=== PATIENT | female | born 1940 | race Caucasian/White ===

== ENCOUNTER → 2019-12-20 12:44 | Outpatient (CLI) | payer MEDICARE, SELFPAY ==
--- NOTE | ~2019-12-20 | MM_ITS ---
EXAMINATION: MM screening regi BI w felicia HISTORY: Screening mammogram TECHNIQUE: Craniocaudal and mediolateral oblique 3-D tomosynthesis images were obtained and synthetic 2-D images were generated. CAD analysis was submitted and interpreted. COMPARISON: 10/13/2018, 09/25/2017, 09/23/2016 bilateral digital screening mammogram examinations BREAST PARENCHYMAL COMPOSITION: There are scattered areas of fibroglandular density. FINDINGS: Biopsy marker on the right; history of prior benign right breast biopsy. There is no eviden ce of suspicious mass, calcification, or architectural distortion to suggest malignancy in either vonda ast. There has been no suspicious interval change. IMPRESSION: 1. No mammographic evidence of malignancy. 2. Recommend routine screening mammography in one year. BIRADS Category 1: Negative RECOMMENDATION: Routine mammographic screening Reviewed, dictated and finalized at location A.
== END ==
PROVIDERS: PCP Internal Medicine; Visit Provider Obstetrics & Gynecology Gynecology
DX: Z12.31 Encounter for screening mammogram for malignant neoplasm of breast (principal)
CPT/HCPCS: 77063; 77067

== ENCOUNTER → 2021-01-02 12:16 | Outpatient (CLI) | payer MEDICARE, SELFPAY ==
--- NOTE | ~2021-01-02 | MM_ITS ---
EXAMINATION: MM screening regi BI w felicia HISTORY: Screening TECHNIQUE: Craniocaudal and mediolateral oblique 3-D tomosynthesis images were obtained and synthetic 2-D images were generated. CAD analysis was submitted and interpreted. COMPARISON: Comparison to multiple prior studies sequentially, with oldest reviewed study dated 09/23. BREAST PARENCHYMAL COMPOSITION: There are scattered areas of fibroglandular density. FINDINGS: There is no evidence of suspicious mass, calcification, or architectural distortion to sugg est malignancy in either breast. There has been no suspicious interval change. IMPRESSION: 1. No mammographic evidence of malignancy. 2. Recommend routine screening mammography in one year. BI-RADS Category 1: Negative Reviewed, dictated and finalized at location A.
== END ==
PROVIDERS: PCP Internal Medicine; Visit Provider Obstetrics & Gynecology Gynecology
DX: Z12.31 Encounter for screening mammogram for malignant neoplasm of breast (principal)
CPT/HCPCS: 77063; 77067

== ENCOUNTER → 2022-03-11 13:05 | Outpatient (CLI) | payer MEDICARE, SELFPAY ==
--- NOTE | ~2022-03-11 | MM_ITS ---
EXAMINATION: MM screening regi BI w felicia HISTORY: Screening mammogram TECHNIQUE: Craniocaudal and mediolateral oblique 3-D tomosynthesis images were obtained and synthetic 2-D images were generated. CAD analysis was submitted and interpreted. COMPARISON: 01/02/2021, 12/20/2019, 10/13/2018 bilateral screening mammogram examinations BREAST PARENCHYMAL COMPOSITION: There are scattered areas of fibroglandular density. FINDINGS: There is a biopsy marker on the right. Seminal history of prior benign right breast biopsy. Occasional benign calcifications of the breasts. There is no evidence of suspicious mass, calcificati on, or architectural distortion to suggest malignancy in either breast. There has been no suspicious interval change. IMPRESSION: 1. No mammographic evidence of malignancy. 2. Recommend routine screening mammography in one year. BI-RADS Category 2: Benign finding(s). Reviewed, dictated and finalized at location A. CTOR LOAN
== END ==
PROVIDERS: PCP Internal Medicine; Visit Provider Obstetrics & Gynecology Gynecology
DX: Z12.31 Encounter for screening mammogram for malignant neoplasm of breast (principal)
CPT/HCPCS: 77063; 77067

== ENCOUNTER → 2022-03-26 09:45 | Outpatient (CLI) | payer MEDICARE, SELFPAY ==
--- NOTE | ~2022-03-26 | DEXA_ITS ---
Bone Density Report Name: MAKAYLA MONTES Age: 81 Sex: Female Ethnicity: White Date of : 1940 Indication: postmenopausal; screening for osteoporosis; height loss; Referring Provider: TONY LYNCH Study: Bone densitometry was performed. Exam Date: March 26, 2022 Accession number: [id number] Bone Density: Region BMD T-score Z-score Classification AP Spine (L1, L2) 1.028 0.4 3.1 Normal Femoral Neck (Left) 0.805 -0.4 2.0 Normal Total Hip (Left) 0.985 0.4 2.6 Normal Femoral Neck (Right) 0.884 0.3 2.8 Normal Total Hip (Right) 1.133 1.6 3.8 Normal Total Hip Mean 1.059 1.0 3.2 Normal World Health Organization criteria for BMD impression classify patients as: Normal (T-score at or above -1.0), Osteopenia (T-score between -1.0 and -2.5), or Osteoporosis (T-score at or below -2.5). 10-year Fracture Risk: FRAX not reported because: All T-scores for Spine Total, Hip Total, Femoral Neck at or above -1.0 Previous Exams: Region Exam Age BMD T-score BMD Change BMD Change Date g/cm2 vs Baseline vs Previous AP Spine(L1, L2) 03/26/2022 81 1.028 0.4 0.132* 0.000 01/15/2019 78 1.028 0.4 0.133* 0.062* 12/30/2014 74 0.967 -0.1 0.071* -0.001 12/18/2011 71 0.968 -0.1 0.073* 0.046* 12/15/2009 69 0.922 -0.5 0.026* 0.026* 07/11/2006 66 0.895 -0.8 Total Hip(Left) 03/26/2022 81 0.985 0.4 -0.014 -0.007 01/15/2019 78 0.992 0.4 -0.007 -0.075* 12/30/2014 74 1.067 1.0 0.068* 0.059* 12/18/2011 71 1.008 0.5 0.009 0.013 12/15/2009 69 0.994 0.4 -0.005 -0.005 07/11/2006 66 0.999 0.5 Total Hip(Right) 03/26/2022 81 1.133 1.6 0.033* -0.028* 01/15/2019 78 1.161 1.8 0.061* 0.028* 12/30/2014 74 1.133 1.6 0.033* 0.113* 12/18/2011 71 1.020 0.6 -0.080* -0.004 12/15/2009 69 1.024 0.7 -0.076* -0.076* 07/11/2006 66 1.100 1.3 *Denotes significance at 95% confidence level, LSC for AP Spine = 0.022 g/cm2, LSC for Total Hip = 0.027 g/cm2 Clinical Information Provided by Patient: Has used the following medications: Vitamin D, Calcium Patient maximum height was 65.75 Menopause Age: 49 No regular weight bearing exercise Onset of menses at age 13 Number of children 2 -
== END ==
PROVIDERS: PCP Internal Medicine; Visit Provider Obstetrics & Gynecology Gynecology
DX: Z78.0 Asymptomatic menopausal state (principal)
CPT/HCPCS: 77080

== ENCOUNTER → 2023-03-19 13:07 | Outpatient (CLI) | payer MEDICARE, SELFPAY ==
--- NOTE | ~2023-03-19 | MM_ITS ---
EXAMINATION: MM screening regi BI w felicia HISTORY: Screening mammogram, family history of breast cancer in her sister. TECHNIQUE: Craniocaudal and mediolateral oblique 3-D tomosynthesis images were obtained and synthetic 2-D images were generated. CAD analysis was submitted and interpreted. COMPARISON: 03/11/2022, 01/02/2021, 12/20/2019 BREAST PARENCHYMAL COMPOSITION: There are scattered areas of fibroglandular density. FINDINGS: No suspicious mass, calcification, or architectural distortion are identified in either vonda ast to suggest malignancy. There has been no suspicious interval change. IMPRESSION: 1. No mammographic evidence of malignancy. 2. Recommend routine screening mammography while the patient remains in good health. BI-RADS Category 1: Negative Reviewed, dictated and finalized at location A. ON SEWER HAND IMPRESSION: 1. No mammographic evidence of malignancy. 2. Recommend routine screening mammography while the patient remains in good he alth. BI-RADS Category 1: Negative
== END ==
PROVIDERS: PCP Internal Medicine; Visit Provider Obstetrics & Gynecology Gynecology
DX: Z12.31 Encounter for screening mammogram for malignant neoplasm of breast (principal)
CPT/HCPCS: 77063; 77067

== ENCOUNTER 2024-10-26 11:13 | Outpatient (CLI) | payer MEDICARE, SELFPAY ==
--- NOTE | ~2024-10-26 | MM_ITS ---
EXAMINATION: MM screening [facility] BI w felicia HISTORY: Screening mammogram TECHNIQUE: Craniocaudal and mediolateral oblique 3-D tomosynthesis images were obtained and synthetic 2-D images were generated. CAD analysis was submitted and interpreted. COMPARISON: 03/19/2023, 03/11/2022, 01/02/2021 BREAST PARENCHYMAL COMPOSITION:Not Dense. There are scattered areas of fibroglandular density. FINDINGS: There are much more numerous calcifications at the upper, outer, posterior right breast, bu t these have round and lucent centered morphology, compatible with benign calcifications. No suspicio us mass, calcification, or architectural distortion are identified in either breast to suggest malign ajith. There has been no suspicious interval change. IMPRESSION: No mammographic evidence of malignancy. Recommend routine screening mammography in one year. BI-RADS Category 2: Benign finding(s). Reviewed, dictated and finalized at [facility].
== END 2024-10-26 11:14 | disposition home or self-care (01) ==
LOC: MICIMG 11:15
PROVIDERS: PCP Internal Medicine; Visit Provider Obstetrics & Gynecology Gynecology
DX: Z12.31 Encounter for screening mammogram for malignant neoplasm of breast (principal)
CPT/HCPCS: 77063; 77067

== ENCOUNTER 2024-11-16 15:03 | Emergency (ER) | payer OTHER, MEDICARE, SELFPAY ==
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
[2024-11-16 15:03] VITALS: BP 162/74; PULSE 87; RESP 17; TEMP 36.9; O2SAT 96
--- NOTE | 2024-11-16 15:06 | ECG_ITS ---
Test Date: 2024-11-16 15:10:44 Measurements Intervals Sims Rate: 89 P: 55 FL: 191 QRS: -3 QRSD: 81 T: 37 QT: 336 QTc: 409 Interpretive Statements SINUS RHYTHM WITH OCCASIONAL SUPRAVENTRICULAR PREMATURE COMPLEXES No previous ECG available for comparison Electronically Signed On 11-17-2024 12:33:21 CDT by Aayush Martins M.D.
[2024-11-16 16:54] LABS: Estimated CRCL calculation 47 ml/min; Estimated Glomerular Filt Rate > 60
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
[2024-11-16] MEDS: ACETAMINOPHEN 500 MG TABLET 1000 MG PO (17:31)
[2024-11-16] MEDS: traMADol HCL (*CRX) 25 MG TABLET PO (17:33)
[2024-11-16 17:36] VITALS: BP 138/66; PULSE 88; RESP 17; O2SAT 95
--- OUTSIDE RECORDS SUMMARY | 2024-11-16 18:01 | XMS_ITS | Data Portability ---
Author Organization [facility], Main Office Address [address] [place] [address] Care Team Providers Care Neuropsychology Director Name Role Phone GANESH MONTALVO Primary Care Provider GANESH MONTALVO Referring Provider Assessment Encounter Date Assessment Date Assessment LastModified by Organization Details LastModified Time 02/20/2023 02/20/2023 Impression: Patient has evidence of trochanteric bursitis of the left hip. She does not have definite abduction weakness. She would like to try another cortisone shot I think that is a reasonable option for her. Risks of side effects including risk of infection discussed. After ChloraPrep prep, 20 mg of Kenalog and 4 cc of 0.5% ropivacaine were injected the trochanteric bursa left hip. She noted excellent relief of the tenderness over the greater trochanter after the injection. 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 I will be happy to see her back as needed. [email or web address] Not available 02/20/2023 15:57:20 Plan of Treatment Reminders Order Date Submit Date Provider Last Modified By Organization Details Last Modified Time Details Appointments Medicare Wellness 15 2024 11:15A M Ganesh Montalvo MD Not available Not available Not available Lab vitamin D, 25-hydrox y, total, serum 2024 025 [email or web address] [facility] (Lab), [address] [place], [address], 06/15/2024 09:43:58 CMP, serum or plasma 2024 025 [facility] [address] [place], [address], 06/09/2024 19:31:26 lipid panel, serum 2024 025 [facility] (Lab), [address] [place], [address], 06/09/2024 19:31:31 TSH, serum or plasma 2024 025 [facility] (Lab), [address] [place], [address], 06/09/2024 19:57:59 TSH, serum or plasma 2023 024 [facility] (Lab), [address] [place], [address], 01/12/2024 22:45:10 vitamin D, 25-hydrox y, total, serum 2023 024 [facility] (Lab), [address] [place], [address], 05/14/2023 00:32:01 CMP, serum or plasma 2023 024 [facility] (Lab), [address] [place], [address], 05/13/2023 20:36:58 lipid panel, serum 2023 024 [facility] (Lab), [address] [place], [address], 05/13/2023 20:37:00 CBC w/ auto diff 2023 024 [facility] (Lab), [address] [place], [address], 05/13/2023 19:34:11 TSH, serum or plasma 2023 024 [facility] (Lab), [address] [place], [address], 05/13/2023 20:49:17 T4, free, serum 2023 024 [facility] (Lab), [address] [place], [address], 05/13/2023 20:42:43 Referral None recorded. Procedures injection /aspirati on joint/bur sa (PROC) - in office procedure , administe red by provider 2022 023 [email or web address] In-Office Order, Internal Use Only DO Not Attach Compendium DO Not Attach Compendium, Do Not Delete/merge, [id number] 02/20/2023 15:18:46 Surgeries None recorded. Imaging None recorded. Medication Orders oxybutyni n chloride ER 10 mg tablet,ex tended release 24 hr 2023 024 [address] [id number] [address], [place], [id number], 06/08/2024 16:08:28 celecoxib 200 mg capsule 2023 [address] [address], [place], [id number], 05/09/2023 13:32:20 Kenalog 10 mg/mL suspensio n for injection 2022 023 [email or web address] [facility] #[id number], [address], [place], [id number], 05/08/2023 14:35:35 ropivacai ne (PF) 5 mg/mL (0.5 %) injection solution 2022 023 [email or web address] [facility] #[id number], [address], [place], [id number], 09/08/2023 14:17:40 Patient TargetsNo targets recorded. Patient Instructions Encounter Date Encounter Id Patient Instructions Last Modified By Organization Details Last Modified Time 01/12/2024 [id number] dementia rating scale-2* Not available 01/12/2024 16:47:52 alcohol misuse* Not available 01/12/2024 16:47:52 Timed Up and Go test (TUG)* Not available 01/12/2024 16:47:52 depression screening* Not available 01/12/2024 16:47:51 multi-dimensiona l health assessment questionnaire* Not available 01/12/2024 16:47:52 advance directiv es: care instructions Not available 01/12/2024 16:47:52 advance care planning: care instructions Not available 01/12/2024 16:47:52 [place] Advance Directives Not available 01/12/2024 16:47:52 Personalized a lth Plan and Screening Recommendations Advance Directives - Do you have one? No You have indicated that you are capable of preparing your advance care directive Advance Directives - Do we have your advance directive on file in your health record? 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, Continue current treatment plan Heart Attack: Intermediate Risk Active diagnosis, Continue current treatment plan Clogging of the Arteries: Low risk Active diagnosis, Continue current treatment plan Diabetes: Low Risk I have no recommendations Secondary Prevention/Interven tion (detects treatable diseases before they may cause symptoms, disability, or ) Breast Cancer Screening with mammogram: No screening necessary Cervical/Uterine/Ov pura Cancer Screening: No screening necessary Osteoporosis Screening: No screening necessary Date Screening Last Performed: Colon Cancer Screening: No screening necessary Date Screening Last Performed: Eye Disease Screening: No Eye exam necessary Dementia Risk: Low I have no recommendations Depression Screening: Negative I have no recommendations [email or web address] Not available 01/12/2024 15:50:53 Reason for Referral None Reported. Results Created Date Observation Date Name Description Value Unit Range Abnormal Flag Note LastModifiedBy Organization Detail LastModifiedTime 05/12/19 24 05/13/2023 COMPR EHENS MARY METAB OLIC PANEL sodium 139 mmol/ L 137-14 5 Not Available [facility] (Lab) [address] [place], [address], 05/13/2023 20:36:58 05/12/19 24 05/13/2023 COMPR EHENS MARY METAB OLIC PANEL potassium 4.7 mmol/ L 3.5-5. 1 Not Available [facility] (Lab) [address] [place], [address], 05/13/2023 20:36:58 05/12/19 24 05/13/2023 COMPR EHENS MARY METAB OLIC PANEL chloride 103 mmol/ L 98-107 Not Available [facility] (Lab) [address] [place], [address], 05/13/2023 20:36:58 05/12/19 24 05/13/2023 COMPR EHENS MARY METAB OLIC PANEL carbon dioxide 30 mmol/ L 22-30 Not Available [facility] (Lab) [address] [place], [address], 05/13/2023 20:36:58 05/12/19 24 05/13/2023 COMPR EHENS MARY METAB OLIC PANEL anion gap 10.7 mmol/ L 14-22 low Not Available [facility] (Lab) [address] [place], [address], 05/13/2023 20:36:58 05/12/19 24 05/13/2023 COMPR EHENS MARY METAB OLIC PANEL glucose 87 mg/dL 70-99 Not Available [facility] (Lab) [address] [place], [address], 05/13/2023 20:36:58 05/12/19 24 05/13/2023 COMPR EHENS MARY METAB OLIC PANEL BUN 23 mg/dL 8-19 high Not Available [facility] (Lab) [address] [place], [address], 05/13/2023 20:36:58 05/12/19 24 05/13/2023 COMPR EHENS MARY METAB OLIC PANEL creatinine 0.67 mg/dL 0.66-1 .25 Not Available [facility] (Lab) [address] [place], [address], 05/13/2023 20:36:58 05/12/19 24 05/13/2023 COMPR EHENS MARY METAB OLIC PANEL GFR >60 Refer ence Range : [place] ge GFR Healt hy Adult : >60 mL/mi n/1.7 3 m2 Chron ic Kidne y Disea se: 15-60 mL/mi n/1.7 3 m2 Kidne y Failu re: <15/m L/min /1.73 m2 www.n iddk. nih.g ov The MDRD study equat ion has not been valid ated in child mendoza <18 years of age; pregn ant women ; the elder ly >85 years of age; or in some racia l or ethni c subgr oups, such as [facility] nics. Outsi de the valid ated enrrique eters , estim ated GFR is less accur ate, requi ring clini john judgm ent on a case- by-ca se basis . Clini john inter preta tion for other races and ages must be made by the clini annmarie. The MDRD study equat ion has not been valid ated for the evalu ation of serum creat inine relat ed to nutri marlon l statu s or medic ation usage . For perso ns <18 years of age, a pedia tric GFR calcu lator is avail able on the [facility] websi te: https ://rachel rios.kid tee.o rg/pr ofess ional s/kdo qi/gf r_cal culat or Not Available [facility] (Lab) [address] [place], [address], 05/13/2023 20:36:58 05/12/19 24 05/13/2023 COMPR EHENS MARY METAB OLIC PANEL alkaline phosphatase 67 U/L 38-126 Not Available [facility] (Lab) [address] [place], [address], 05/13/2023 20:36:58 05/12/19 24 05/13/2023 COMPR EHENS MARY METAB OLIC PANEL alanine aminotransfe rase 18 U/L 0-35 Not Available [facility] (Lab) [address] [place], [address], 05/13/2023 20:36:58 05/12/19 24 05/13/2023 COMPR EHENS MARY METAB OLIC PANEL aspartate aminotransfe rase 35 U/L 15-37 Not Available [facility] (Lab) [address] [place], [address], 05/13/2023 20:36:58 05/12/19 24 05/13/2023 COMPR EHENS MARY METAB OLIC PANEL bilirubin, total 0.50 mg/dL 0.20-1 .30 Not Available [facility] (Lab) [address] [place], [address], 05/13/2023 20:36:58 05/12/19 24 05/13/2023 COMPR EHENS MARY METAB OLIC PANEL calcium 10.1 mg/dL 8.4-10 .2 Not Available [facility] (Lab) [address] [place], [address], 05/13/2023 20:36:58 05/12/19 24 05/13/2023 COMPR EHENS MARY METAB OLIC PANEL total protein 6.8 g/dL 6.3-8. 2 Not Available [facility] (Lab) [address] [place], [address], 05/13/2023 20:36:58 05/12/19 24 05/13/2023 COMPR EHENS MARY METAB OLIC PANEL albumin 4.1 g/dL 3.0-4. 4 Not Available [facility] (Lab) [address] [place], [address], 05/13/2023 20:36:58 05/12/19 24 05/13/2023 COMPR EHENS MARY METAB OLIC PANEL globulin 2.7 g/dL 2.6-4. 2 Not Available [facility] (Lab) [address] [place], [address], 05/13/2023 20:36:58 05/12/19 24 05/13/2023 COMPR EHENS MARY METAB OLIC PANEL A/G ratio 1.5 ratio 1.0-2. 0 Not Available [facility] (Lab) [address] [place], [address], 05/13/2023 20:36:58 05/12/1905/13/2023 LIPID PANEL cholesterol 187 mg/dL 140-19 9 NIH DAYO NSUS RECOM MENDA TION FOR RAYNA STERO L: ADULT CHILD LOW RISK: <200 <170 BORDE RLINE : <200- 239 ----- HIGH RISK: >240 >200 Not Available [facility] (Lab) [address] [place], [address], 05/13/2023 20:37:00 05/12/1905/13/2023 LIPID PANEL triglyceride s 87 mg/dL 0-150 NIH DAYO NSUS REPOR T RECOM MENDA TION FOR TRIGL YCERI ANETTE: ADULT CHILD LOW RISK: <150 ----- BODER LINE: 150-1 99 ----- HIGH RISK: >200 ----- Not Available [facility] (Lab) [address] [place], [address], 05/13/2023 20:37:00 05/12/19 24 05/13/2023 LIPID PANEL HDL cholesterol 63 mg/dL 40- Not Available [facility] (Lab) [address] [place], [address], 05/13/2023 20:37:00 05/12/19 24 05/13/2023 LIPID PANEL LDL cholesterol, calculated 107 mg/dL 0-130 NIH DAYO NSUS REPOR T RECOM MENDA TIONS FOR LDL: ADULT CHILD LOW RISK <130 <110 (OPTI MAL LDL) <100 ----- BORDE RLINE : 130-1 59 ----- HIGH RISK: >160 >130 A TRIGL YCERI DE RESUL T >400 INVAL IDATE S THE CALCU LATIO N FOR LDL FRACT IONAT ION - THE LDL RESUL T WILL NOT BE REPOR PETER. Not Available [facility] (Lab) [address] [place], [address], 05/13/2023 20:37:00 05/12/19 24 05/13/2023 VITAM IN D 25-HY DROXY [id number] 50.1 NG/mL 30-100 Vitam in D Statu s: Defic ient: <20 ng/mL Insuf ficie nt: 20-29 ng/mL Suffi cient : 30-10 0 ng/mL Not Available [facility] (Lab) [address] [place], [address], 05/13/2023 20:39:25 05/12/19 24 05/13/2023 T4 FREE free T4 1.52 NG/dL 0.78-2 .19 Not Available [facility] (Lab) [address] [place], [address], 05/13/2023 20:42:43 05/12/19 24 05/13/2023 TSH thyroid-stim ulating hormone 0.338 uIU/m L 0.465- 4.680 low Not Available [facility] (Lab) [address] [place], [address], 05/13/2023 20:49:17 05/12/19 24 05/14/2023 CBC/C OMPLE TE BLD COUNT W/DIF F white blood cells 8.7 x10'3 /uL 4.2-10 .8 Not Available [facility] (Lab) [address] [place], [address], 05/14/2023 13:58:30 05/12/19 24 05/14/2023 CBC/C OMPLE TE BLD COUNT W/DIF F red blood cells 4.61 x10'6 /uL 3.80-5 .20 Not Available [facility] (Lab) [address] [place], [address], 05/14/2023 13:58:30 05/12/19 24 05/14/2023 CBC/C OMPLE TE BLD COUNT W/DIF F hemoglobin 14.4 g/dL 12.0-1 5.6 Not Available [facility] (Lab) [address] [place], [address], 05/14/2023 13:58:30 05/12/19 24 05/14/2023 CBC/C OMPLE TE BLD COUNT W/DIF F hematocrit 45.5 % 35.7-4 5.7 Not Available [facility] (Lab) [address] [place], [address], 05/14/2023 13:58:30 05/12/19 24 05/14/2023 CBC/C OMPLE TE BLD COUNT W/DIF F mean red cell volume 98.7 fL 82.0-9 9.0 Not Available [facility] (Lab) [address] [place], [address], 05/14/2023 13:58:30 05/12/19 24 05/14/2023 CBC/C OMPLE TE BLD COUNT W/DIF F mean red cell hemoglobin 31.2 pg 27.0-3 3.0 Not Available [facility] (Lab) [address] [place], [address], 05/14/2023 13:58:30 05/12/19 24 05/14/2023 CBC/C OMPLE TE BLD COUNT W/DIF F mean RBC HGB concentratio n 31.6 g/dL 31.0-3 6.0 Not Available [facility] (Lab) [address] [place], [address], 05/14/2023 13:58:30 05/12/19 24 05/14/2023 CBC/C OMPLE TE BLD COUNT W/DIF F red cell distribution width 13.2 % 11.8-1 5.5 Not Available [facility] (Lab) [address] [place], [address], 05/14/2023 13:58:30 05/12/19 24 05/14/2023 CBC/C OMPLE TE BLD COUNT W/DIF F platelets 175 x10'3 /uL 150-40 0 Not Available [facility] (Lab) [address] [place], [address], 05/14/2023 13:58:30 05/12/19 24 05/14/2023 CBC/C OMPLE TE BLD COUNT W/DIF F mean platelet volume 14.3 fL 9.0-12 .4 high Not Available [facility] (Lab) [address] [place], [address], 05/14/2023 13:58:30 05/12/19 24 05/14/2023 CBC/C OMPLE TE BLD COUNT W/DIF F neutrophils 40.3 % 39.0-7 2.0 Not Available [facility] (Lab) [address] [place], [address], 05/14/2023 13:58:30 05/12/19 24 05/14/2023 CBC/C OMPLE TE BLD COUNT W/DIF F lymphocytes 41.0 % 16.0-4 7.0 Not Available [facility] (Lab) [address] [place], [address], 05/14/2023 13:58:30 05/12/19 24 05/14/2023 CBC/C OMPLE TE BLD COUNT W/DIF F monocytes 13.5 % 5.0-12 .0 high Not Available [facility] (Lab) [address] [place], [address], 05/14/2023 13:58:30 05/12/19 24 05/14/2023 CBC/C OMPLE TE BLD COUNT W/DIF F eosinophils 2.6 % 1.0-7. 0 Not Available [facility] (Lab) [address] [place], [address], 05/14/2023 13:58:30 05/12/19 24 05/14/2023 CBC/C OMPLE TE BLD COUNT W/DIF F basophils 1.5 % 0.0-2. 0 Not Available [facility] (Lab) [address] [place], [address], 05/14/2023 13:58:30 05/12/19 24 05/14/2023 CBC/C OMPLE TE BLD COUNT W/DIF F immature granulocytes 1.1 % 0.00-0 .50 high Not Available [facility] (Lab) [address] [place], [address], 05/14/2023 13:58:30 05/12/19 24 05/14/2023 CBC/C OMPLE TE BLD COUNT W/DIF F neutrophils, absolute count 3.50 x10'3 /uL 1.5-8. 0 Not Available [facility] (Lab) [address] [place], [address], 05/14/2023 13:58:30 05/12/19 24 05/14/2023 CBC/C OMPLE TE BLD COUNT W/DIF F lymphocytes, absolute count 3.57 x10'3 /uL 1.07-3 .43 high Not Available [facility] (Lab) [address] [place], [address], 05/14/2023 13:58:30 05/12/19 24 05/14/2023 CBC/C OMPLE TE BLD COUNT W/DIF F monocytes, absolute count 1.18 x10'3 /uL 0.29-0 .99 high Not Available [facility] (Lab) [address] [place], [address], 05/14/2023 13:58:30 05/12/19 24 05/14/2023 CBC/C OMPLE TE BLD COUNT W/DIF F eosinophils, absolute count 0.23 x10'3 /uL 0.02-0 .53 Not Available [facility] (Lab) [address] [place], [address], 05/14/2023 13:58:30 05/12/19 24 05/14/2023 CBC/C OMPLE TE BLD COUNT W/DIF F basophils, absolute count 0.13 x10'3 /uL 0.01-0 .08 high Not Available [facility] (Lab) [address] [place], [address], 05/14/2023 13:58:30 05/12/19 24 05/14/2023 CBC/C OMPLE TE BLD COUNT W/DIF F immature granulocytes ,absolute 0.10 x10'3 /uL 0.00-0 .05 high Not Available [facility] (Lab) [address] [place], [address], 05/14/2023 13:58:30 05/12/19 24 05/14/2023 CBC/C OMPLE TE BLD COUNT W/DIF F nucleated red blood cells 0.0 % -0 Not Available [facility] (Lab) [address] [place], [address], 05/14/2023 13:58:30 05/12/19 24 05/14/2023 CBC/C OMPLE TE BLD COUNT W/DIF F NRBC# 0.00 x10'3 /uL Not Available [facility] (Lab) [address] [place], [address], 05/14/2023 13:58:30 05/13/19 24 05/13/2023 CBC/C OMPLE TE BLD COUNT W/DIF F white blood cells 9.3 x10'3 /uL 4.2-10 .8 Not Available [facility] (Lab) [address] [place], [address], 05/13/2023 19:34:11 05/13/19 24 05/13/2023 CBC/C OMPLE TE BLD COUNT W/DIF F red blood cells 4.67 x10'6 /uL 3.80-5 .20 Not Available [facility] (Lab) [address] [place], [address], 05/13/2023 19:34:11 05/13/19 24 05/13/2023 CBC/C OMPLE TE BLD COUNT W/DIF F hemoglobin 14.5 g/dL 12.0-1 5.6 Not Available [facility] (Lab) [address] [place], [address], 05/13/2023 19:34:11 05/13/19 24 05/13/2023 CBC/C OMPLE TE BLD COUNT W/DIF F hematocrit 45.9 % 35.7-4 5.7 high Not Available [facility] (Lab) [address] [place], [address], 05/13/2023 19:34:11 05/13/19 24 05/13/2023 CBC/C OMPLE TE BLD COUNT W/DIF F mean red cell volume 98.3 fL 82.0-9 9.0 Not Available [facility] (Lab) [address] [place], [address], 05/13/2023 19:34:11 05/13/19 24 05/13/2023 CBC/C OMPLE TE BLD COUNT W/DIF F mean red cell hemoglobin 31.0 pg 27.0-3 3.0 Not Available [facility] (Lab) [address] [place], [address], 05/13/2023 19:34:11 05/13/19 24 05/13/2023 CBC/C OMPLE TE BLD COUNT W/DIF F mean RBC HGB concentratio n 31.6 g/dL 31.0-3 6.0 Not Available [facility] (Lab) [address] [place], [address], 05/13/2023 19:34:11 05/13/19 24 05/13/2023 CBC/C OMPLE TE BLD COUNT W/DIF F red cell distribution width 13.1 % 11.8-1 5.5 Not Available [facility] (Lab) [address] [place], [address], 05/13/2023 19:34:11 05/13/19 24 05/13/2023 CBC/C OMPLE TE BLD COUNT W/DIF F platelets 174 x10'3 /uL 150-40 0 Not Available [facility] (Lab) [address] [place], [address], 05/13/2023 19:34:11 05/13/19 24 05/13/2023 CBC/C OMPLE TE BLD COUNT W/DIF F neutrophils 44.0 % 39.0-7 2.0 Not Available [facility] (Lab) [address] [place], [address], 05/13/2023 19:34:11 05/13/19 24 05/13/2023 CBC/C OMPLE TE BLD COUNT W/DIF F lymphocytes 38.8 % 16.0-4 7.0 Not Available [facility] (Lab) [address] [place], [address], 05/13/2023 19:34:11 05/13/1905/13/2023 CBC/C OMPLE TE BLD COUNT W/DIF F monocytes 12.2 % 5.0-12 .0 high Not Available [facility] (Lab) [address] [place], [address], 05/13/2023 19:34:11 05/13/1905/13/2023 CBC/C OMPLE TE BLD COUNT W/DIF F eosinophils 3.1 % 1.0-7. 0 Not Available [facility] (Lab) [address] [place], [address], 05/13/2023 19:34:11 05/13/1905/13/2023 CBC/C OMPLE TE BLD COUNT W/DIF F basophils 1.5 % 0.0-2. 0 Not Available [facility] (Lab) [address] [place], [address], 05/13/2023 19:34:11 05/13/1905/13/2023 CBC/C OMPLE TE BLD COUNT W/DIF F immature granulocytes 0.4 % 0.00-0 .50 Not Available [facility] (Lab) [address] [place], [address], 05/13/2023 19:34:11 05/13/1905/13/2023 CBC/C OMPLE TE BLD COUNT W/DIF F neutrophils, absolute count 4.07 x10'3 /uL 1.5-8. 0 Not Available [facility] (Lab) [address] [place], [address], 05/13/2023 19:34:11 05/13/19 24 05/13/2023 CBC/C OMPLE TE BLD COUNT W/DIF F lymphocytes, absolute count 3.60 x10'3 /uL 1.07-3 .43 high Not Available [facility] (Lab) [address] [place], [address], 05/13/2023 19:34:11 05/13/19 24 05/13/2023 CBC/C OMPLE TE BLD COUNT W/DIF F monocytes, absolute count 1.13 x10'3 /uL 0.29-0 .99 high Not Available [facility] (Lab) [address] [place], [address], 05/13/2023 19:34:11 05/13/19 24 05/13/2023 CBC/C OMPLE TE BLD COUNT W/DIF F eosinophils, absolute count 0.29 x10'3 /uL 0.02-0 .53 Not Available [facility] (Lab) [address] [place], [address], 05/13/2023 19:34:11 05/13/19 24 05/13/2023 CBC/C OMPLE TE BLD COUNT W/DIF F basophils, absolute count 0.14 x10'3 /uL 0.01-0 .08 high Not Available [facility] (Lab) [address] [place], [address], 05/13/2023 19:34:11 05/13/19 24 05/13/2023 CBC/C OMPLE TE BLD COUNT W/DIF F immature granulocytes ,absolute 0.04 x10'3 /uL 0.00-0 .05 Not Available [facility] (Lab) [address] [place], [address], 05/13/2023 19:34:11 05/13/19 24 05/13/2023 CBC/C OMPLE TE BLD COUNT W/DIF F nucleated red blood cells 0.0 % -0 Not Available [facility] (Lab) [address] [place], [address], 05/13/2023 19:34:11 05/13/19 24 05/13/2023 CBC/C OMPLE TE BLD COUNT W/DIF F NRBC# 0.00 x10'3 /uL Not Available [facility] (Lab) [address] [place], [address], 05/13/2023 19:34:11 05/13/19 24 05/13/2023 TEST NOT PERFO RMED test not performed SEE COMMEN T CBC NOT PERFO RMED SPECI MEN OUTSI DE OF STABI LITY TIME Not Available [facility] (Lab) [address] [place], [address], 05/13/2023 20:24:07 01/12/20 24 01/12/2024 TSH thyroid-stim ulating hormone 1.110 uIU/m L 0.465- 4.680 Not Available [facility] (Lab) [address] [place], [address], 01/12/2024 22:45:10 06/09/19 25 06/09/2024 COMPR EHENS MARY METAB OLIC PANEL sodium 141 mmol/ L 137-14 5 Not Available [facility] (Lab) [address] [place], [address], 06/09/2024 19:31:26 06/09/19 25 06/09/2024 COMPR EHENS MARY METAB OLIC PANEL potassium 4.6 mmol/ L 3.5-5. 1 Not Available [facility] (Lab) [address] [place], [address], 06/09/2024 19:31:26 06/09/19 25 06/09/2024 COMPR EHENS MARY METAB OLIC PANEL chloride 106 mmol/ L 98-107 Not Available [facility] (Lab) [address] [place], [address], 06/09/2024 19:31:26 06/09/19 25 06/09/2024 COMPR EHENS MARY METAB OLIC PANEL carbon dioxide 29 mmol/ L 22-30 Not Available [facility] (Lab) [address] [place], [address], 06/09/2024 19:31:26 06/09/19 25 06/09/2024 COMPR EHENS MARY METAB OLIC PANEL anion gap 10.6 mmol/ L 14-22 low Not Available [facility] (Lab) [address] [place], [address], 06/09/2024 19:31:26 06/09/19 25 06/09/2024 COMPR EHENS MARY METAB OLIC PANEL glucose 101 mg/dL 70-99 high Not Available [facility] (Lab) [address] [place], [address], 06/09/2024 19:31:26 06/09/19 25 06/09/2024 COMPR EHENS MARY METAB OLIC PANEL BUN 25 mg/dL 8-19 high Not Available [facility] (Lab) [address] [place], [address], 06/09/2024 19:31:26 06/09/19 25 06/09/2024 COMPR EHENS MARY METAB OLIC PANEL creatinine 0.72 mg/dL 0.66-1 .25 Not Available [facility] (Lab) [address] [place], [address], 06/09/2024 19:31:26 06/09/19 25 06/09/2024 COMPR EHENS MARY METAB OLIC PANEL GFR >60 Refer ence Range : [place] ge GFR Healt hy Adult : >60 mL/mi n/1.7 3 m2 Chron ic Kidne y Disea se: 15-60 mL/mi n/1.7 3 m2 Kidne y Failu re: <15/m L/min /1.73 m2 [email or web address] The MDRD study equat ion has not been valid ated in child mendoza <18 years of age; pregn ant women ; the elder ly >85 years of age; or in some racia l or ethni c subgr oups, such as Hispa nics. Outsi de the valid ated enrrique eters , estim ated GFR is less accur ate, requi ring clini john judgm ent on a case- by-ca se basis . Clini john inter preta tion for other races and ages must be made by the clini annmarie. The MDRD study equat ion has not been valid ated for the evalu ation of serum creat inine relat ed to nutri marlon l statu s or medic ation usage . For perso ns <18 years of age, a pedia tric GFR calcu lator is avail able on the [facility] websi te: [email or web address] :[email or web address] [email or web address] culat or Not Available [facility] [facility] ([facility] [address] [place], [address], 06/09/2024 19:31:26 06/09/19 25 06/09/2024 COMPR EHENS MARY METAB OLIC PANEL alkaline phosphatase 71 U/L 38-126 Not Available [facility] (Lab) [address] [place], [address], 06/09/2024 19:31:26 06/09/19 25 06/09/2024 COMPR EHENS MARY METAB OLIC PANEL alanine aminotransfe rase 21 U/L 0-35 Not Available [facility] (Lab) [address] [place], [address], 06/09/2024 19:31:26 06/09/19 25 06/09/2024 COMPR EHENS MARY METAB OLIC PANEL aspartate aminotransfe rase 40 U/L 15-37 high Not Available [facility] (Lab) [address] [place], [address], 06/09/2024 19:31:26 06/09/19 25 06/09/2024 COMPR EHENS MARY METAB OLIC PANEL bilirubin, total 0.90 mg/dL 0.20-1 .30 Not Available [facility] (Lab) [address] [place], [address], 06/09/2024 19:31:26 06/09/19 25 06/09/2024 COMPR EHENS MARY METAB OLIC PANEL calcium 9.8 mg/dL 8.4-10 .2 Not Available [facility] (Lab) [address] [place], [address], 06/09/2024 19:31:26 06/09/19 25 06/09/2024 COMPR EHENS MARY METAB OLIC PANEL total protein 7.1 g/dL 6.3-8. 2 Not Available [facility] (Lab) [address] [place], [address], 06/09/2024 19:31:26 06/09/19 25 06/09/2024 COMPR EHENS MARY METAB OLIC PANEL albumin 4.5 g/dL 3.0-4. 4 high Not Available [facility] (Lab) [address] [place], [address], 06/09/2024 19:31:26 06/09/19 25 06/09/2024 COMPR EHENS MARY METAB OLIC PANEL globulin 2.6 g/dL 2.6-4. 2 Not Available [facility] (Lab) [address] [place], [address], 06/09/2024 19:31:26 06/09/19 25 06/09/2024 COMPR EHENS MARY METAB OLIC PANEL A/G ratio 1.7 ratio 1.0-2. 0 Not Available [facility] (Lab) [address] [place], [address], 06/09/2024 19:31:26 06/09/19 25 06/09/2024 LIPID PANEL cholesterol 192 mg/dL 140-19 9 [facility] DAYO NSUS RECOM MENDA TION FOR RAYNA STERO L: ADULT CHILD LOW RISK: <200 <170 BORDE RLINE : <200- 239 ----- HIGH RISK: >240 >200 Not Available [facility] (Lab) [address] [place], [address], 06/09/2024 19:31:31 06/09/1906/09/2024 LIPID PANEL triglyceride s 97 mg/dL 0-150 [facility] DAYO NSUS REPOR T RECOM MENDA TION FOR TRIGL YCERI ANETTE: ADULT CHILD LOW RISK: <150 ----- BODER LINE: 150-1 99 ----- HIGH RISK: >200 ----- Not Available [facility] (Lab) [address] [place], [address], 06/09/2024 19:31:31 06/09/1906/09/2024 LIPID PANEL HDL cholesterol 68 mg/dL 40- Not Available [facility] (Lab) [address] [place], [address], 06/09/2024 19:31:31 06/09/1906/09/2024 LIPID PANEL LDL cholesterol, calculated 105 mg/dL 0-130 [facility] DAYO NSUS REPOR T RECOM MENDA TIONS FOR LDL: ADULT CHILD LOW RISK <130 <110 (OPTI MAL LDL) <100 ----- BORDE RLINE : 130-1 59 ----- HIGH RISK: >160 >130 A TRIGL YCERI DE RESUL T >400 INVAL IDATE S THE CALCU LATIO N FOR LDL FRACT IONAT ION - THE LDL RESUL T WILL NOT BE REPOR PETER. Not Available [facility] (Lab) [address] [place], [address], 06/09/2024 19:31:31 06/09/1906/09/2024 VITAM IN D 25-HY DROXY vd25oh 57.3 NG/mL 30-100 Vitam in D Statu s: Defic ient: <20 ng/mL Insuf ficie nt: 20-29 ng/mL Suffi cient : 30-10 0 ng/mL Not Available [facility] (Lab) [address] [place], [address], 06/09/2024 19:50:48 06/09/19 25 06/09/2024 TSH thyroid-stim ulating hormone 1.450 uIU/m L 0.465- 4.680 Not Available [facility] (Lab) [address] [place], [address], 06/09/2024 19:57:59 10/27/19 25 10/26/2024 MAMMO , scree danny, digit al, bilat eral No observ ation record ed. [email or web address] Not Available 2024 16:03:07 Result Notes None recorded. Problems Name Problem SNOMED Code Status Onset Date Resolution Date Notes Provider Name and Address Organization Details Recorded Time Osteoarth ritis of left hip joint 43194250983 9108 Active 2022 SERA Desir, [place] [facility] 3 15:17:36 Hearing loss 94312436 Active 2021 Not Available [facility] 3 03:22:18 Kyphoscol iosis and scoliosis Active Not Available [facility] 3 03:22:18 Osteoarth ritis of hip 506777752 Active Not Available [facility] 3 03:22:18 Low back pain 207261660 Active 2022 Not Available [facility] 3 03:22:18 Enthesopa thy of hip region 68646092 Active Not Available [facility] 3 03:22:18 Pain of left hip joint 38937157596 9100 Active 2022 Not Available [facility] 3 03:22:18 Pain of left hip joint 86652646922 9100 Completed 202111/12/2021 Not Available [facility] 3 03:22:18 Pain of right hip joint 83541623872 9102 Active 2022 Not Available [facility] 3 03:22:18 Vitamin D deficienc y 56319385 Active 2021 Not Available [facility] 3 03:22:18 Osteoarth ritis 861675614 Active Not Available [facility] 3 03:22:19 Hypothyro idism 06191931 Active 2021 Not Available [facility] 3 03:22:19 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 71848746 Active Not Available [facility] 3 03:22:19 Essential hypertens ion 85670456 Active 2021 Not Available [facility] 3 03:22:19 Overactiv e urinary bladder 564172762 Active 2021 Not Available [facility] 3 03:22:19 COVID-19 315625605 Active 2022 Not Available [facility] 3 03:22:19 COVID-19 042917250 Completed 202105/23/2022 Not Available [facility] 3 03:22:19 Pain in limb 98056878 Completed Not Available [facility] 3 03:22:19 Problem Notes None recorded. Procedures Surgical History Date Name Laterality Status Provider Name and Address Organization Details Recorded Time 4 Medicare Wellness CPT Code, subsequent completed DARELL Ojeda Susan [facility] 01/12/2024 14:27:09 4 Advanced Care Planning completed DARELL Ojeda Susan [facility] 01/12/2024 15:43:27 Cancer Surgery completed Not Available [facility] 07/03/2022 03:14:20 Imaging Results None recorded. Procedure Notes None recorded. Medical Equipment None Reported. Allergies Allergen ID Allergen Name Allergen Category Reaction Reaction Severity Criticality Documentation Date Start Date Code Code System Note Provider Name and Address Organization Details Recorded Time 6265 Biaxin medicatio n abdominal pain Not available Not available 07/03/2022 9 RxNorm Not Available [facility] 3 03:34:12 Medications Name Sig Start Date Stop Date Status Note LastModified by Organization Details LastModified Time celecoxib 200 mg capsule TAKE 1 CAPSULE BY MOUTH EVERY DAY active Not Available Not Available No t Available oxybutyni n chloride ER 10 mg tablet,ex tended release 24 hr TAKE 1 TABLET BY MOUTH EVERY DAY 06/08 completed Not Available Not Available Not Available benzonata te 200 mg capsule Take 1 capsule 3 times a day by oral route. active Not Available Not Available No t Available bupivacai ne HCl 0.5 % (5 mg/mL) injection solution In office injectio n administ ered by the provider 03/07 completed Not Available Not Available Not Available diphenoxy late-atro pine 2.5 mg-0.025 mg tablet 03/08 completed Not Available Not Available Not Available penicilli n V potassium 500 mg tablet 03/08 completed Not Available Not Available Not Available triamcino lone acetonide 0.5 % topical ointment APPLY TOPICALL Y TO THE ULCERATE D AREA AFTER MEALS AND AT BEDTIME 06/08 completed Not Available Not Available Not Available acyclovir 400 mg tablet 03/24 completed Not Available Not Available Not Available levothyro xine 75 mcg tablet TAKE 1 TABLET BY MOUTH EVERY DAY IN THE MORNING ON AN EMPTY STOMACH 08/13 completed DECREASE D TO 50MCG 05/12/23 - Not Available Not Available Not Available triamcino lone acetonide 0.1 % dental paste APPLY TO ULCERATE D AREA AFTER A MEAL AND AT BEDTIME active Not Available Not Available No t Available Kenalog 10 mg/mL suspensio n for injection in office 05/08 completed NDC: 0003-049 4-20 Not Available Not Available Not Available levothyro xine 50 mcg tablet TAKE 1 TABLET BY MOUTH EVERY DAY active Not Available Not Available No t Available clotrimaz ole-betam ethasone 1 %-0.05 % topical cream 03/08 completed Not Available Not Available Not Available hydrochlo rothiazid e 12.5 mg capsule TAKE 1 CAPSULE EVERY 48 HOURS 03/07 completed Not Available Not Available Not Available magnesium 250 mg tablet Take by oral route. 2019 active Not Available Not Available Not Avai lable ergocalci ferol (vitamin D2) 1,250 mcg (50,000 unit) capsule TAKE 1 CAPSULE BY MOUTH ONCE A WEEK active Not Available Not Available No t Available Restasis 0.05 % eye drops in a dropperet te 03/08 completed Not Available Not Available Not Available Vigamox 0.5 % eye drops 03/08 completed Not Available Not Available Not Available Priscila-C 500 mg capsule Take by oral route. 2019 active Not Available Not Available Not Avai lable Nevanac 0.1 % eye drops,ricky pension 03/08 completed Not Available Not Available Not Available calcium 2019 active Not Available Not Available Not Avai lable biotin 2019 active Not Available Not Available Not Avai lable Super B Complex 2019 active Not Available Not Available Not Avai lable lutein 2019 active Not Available Not Available Not Avai lable lidocaine (PF) 10 mg/mL (1 %) injection solution In office injectio n administ ered by the provider 11/20 completed [facility]: 0409-427 6 Not Available Not Available Not Available B-12 DOTS 500 mcg tablet Take by oral route. 2019 active Not Available Not Available Not Avai lable Durezol 0.05 % eye drops 03/08 completed Not Available Not Available Not Available Osteo Bi-Flex 2019 active Not Available Not Available Not Avai lable ropivacai ne (PF) 5 mg/mL (0.5 %) injection solution in office 09/07 completed [facility] 19496-45 4- Not Available Not Available Not Available Breo Ellipta 100 mcg-25 mcg/dose powder for inhalatio n 02/20 completed Not Available Not Available Not Available Fluvirin 8616-6308 45 mcg (15 mcg x 3)/0.5 mL intramusc ular suspensio n 03/08 completed Not Available Not Available Not Available Vitals Date Recorded Systolic And Diastolic Provider Name and Address Organization Details Last Updated DateTime 05/08/2023 110/80 mm[Hg] Ganesh Montalvo MD [address] [facility], [facility] [address], [place], [address], [place] [facility] [employer] 05/08/2023 15:09:18 Date Recorded Body height Body temperature Heart rate Oxygen saturation Oxygen saturation in Arterial blood by Pulse oximetry Provider Name and Address Organization Details Last Updated DateTime 4 157.48 cm 97.3 [degF] 89 /min 97 % 97 % Moises Merino CMA [facility] [employer] [facility] 4 14:34:36 Date Recorded Body height Body mass index (BMI) Body weight Body temperature Heart rate Oxygen saturation Oxygen saturation in Arterial blood by Pulse oximetry Systolic And Diastolic Provider Name and Address Organization Details Last Updated DateTime 5 157.48 cm 36.2 kg/m2 10288.2 9 g 97.3 [degF] 100 /min 96 % 96 % 126/70 mm[Hg] Angelica cadet [facility] [employer] [facility] 5 15:58:14 Date Recorded Body height Body mass index (BMI) Body weight Body temperature Heart rate Oxygen saturation Oxygen saturation in Arterial blood by Pulse oximetry Systolic And Diastolic Provider Name and Address Organization Details Last Updated DateTime 4 157.48 cm 35.9 kg/m2 44645.9 g 98.1 [degF] 87 /min 98 % 98 % 108/70 mm[Hg] Marni Hayden [facility] [employer] [facility] 4 14:14:41 Date Recorded Body height Body mass index (BMI) Body weight Body temperature Heart rate Oxygen saturation Oxygen saturation in Arterial blood by Pulse oximetry Systolic And Diastolic Provider Name and Address Organization Details Last Updated DateTime 4 157.48 cm 35.5 kg/m2 81486.9 2 g 97.1 [degF] 81 /min 95 % 95 % 132/80 mm[Hg] Angelica cadet [facility] [employer] [facility] 4 14:05:27 Date Recorded Body height Provider Name an d Address Organization Details Last Updated DateTime 02/20/2023 157.[address] [facility] [employer] [facility] 02/20/2023 15:16:24 Social History Question Answer Notes LastModified by Organization Details LastModified Time Tobacco Smoking Status Never Smoker Not Available [facility] 07/03/2022 03:08:38 Do You Have An Advance Directive? No Paperwork Provided 01/12/2024 [email or web address] Information not available 01/12/2024 Do You Wear A Helmet When Biking? No MIGRATION.0301 [id number] Information not available 07/03/2022 Are You Blind Or Do You Have Difficulty Seeing? No MIGRATION.0301 [id number] Information not available 07/03/2022 Is Blood Transfusion Acceptable In An Emergency? Yes [email or web address] Information not available 01/12/2024 What Is Your Level Of Caffeine Consumption? Occasional [email or web address] Information not available 01/12/2024 In The 14 Days Before Symptom Onset, Have You Had Close Contact With A Laboratory-con firmed COVID-19 While That Case Was Ill? No Not Applicable [email or web address] Information not available 01/12/2024 Are You Deaf Or Do You Have Serious Difficulty Hearing? 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 REGULAR MIGRATION.0301 [id number] Information not available 07/03/2022 What Is The Highest Grade Or Level Of School You Have Completed Or The Highest Degree You Have Received? OC05650-9 MIGRATION.030 [id number] Information not available 07/03/2022 How Many Days Of Moderate To Strenuous Exercise, Like A Brisk Walk, Did You Do In The Last 7 Days? 0 [email or web address] Information not available 01/12/2024 Have There Been Any Changes To Your Family Or Social Situation? No MIGRATION.0301 [id number] Information not available 07/03/2022 What Is The Fluoride Status Of Your Home? Fluoridated [email or web address] Information not available 01/12/2024 Are There Any Guns Present In Your Home? No [email or web address] Information not available 01/12/2024 Do You Use Insect Repellent Routinely? No MIGRATION.0301 [id number] Information not available 07/03/2022 Where Do You Live? SingleLevelHouse MIGRATION.0301 [id number] Information not available 07/03/2022 Presence Of Domestic Violence No [email or web address] Information not available 01/12/2024 Guns Present In The Home? No [email or web address] Information not available 01/12/2024 Are You Able To Care For Yourself? Yes [email or web address] Information not available 01/12/2024 Are You Blind Or Do Yo Have Difficulty Seeing? No [email or web address] Information not available 01/12/2024 Are You Deaf Or Do You Have Serious Difficulty Hearing? Yes [email or web address] Information not available 01/12/2024 General Stress Level? Low [email or web address] Information not available 01/12/2024 Live Alone Of With Others? Alone [email or web address] Information not available 01/12/2024 Do You Have A Medical Power Of Unit Clerk? Yes MIGRATION.0301 [id number] Information not available 07/03/2022 What Was The Date Of Your Most Recent Tobacco Screening? 01/12/2024 [email or web address] Information not available 01/12/2024 Do You Have Any Pets? No MIGRATION.0301 [id number] Information not available 07/03/2022 What Is Your Relationship Status? MIGRATION.0301 [id number] Information not available 07/03/2022 Do You Use Your Seat Belt Or Car Seat Routinely? Yes MIGRATION.0301 [id number] Information not available 07/03/2022 Are You Sexually Active? No [email or web address] Information not available 01/12/2024 Do You Have Smoke And Carbon Monoxide Detectors In Your Home? Yes MIGRATION.0301 358700 Information not available 07/03/2022 Are You Passively Exposed To Smoke? No MIGRATION.0301 218232 Information not available 07/03/2022 Are There Any Smokers In Your House? No MIGRATION.0301 092418 Information not available 07/03/2022 What Types Of Sporting Activities Do You Participate In? None [email or web address] Information not available 01/12/2024 Do You Use Sunscreen Routinely? No MIGRATION.0301 [id number] Information not available 07/03/2022 Has Tobacco Cessation Counseling Been Provided? No [email or web address] Information not available 01/12/2024 Have You Recently Traveled Abroad? No MIGRATION.0301 806305 Information not available 07/03/2022 Do You Have Difficulty Walking Or Climbing Stairs? Yes MIGRATION.0301 381020 Information not available 07/03/2022 Do You Have Any Dietary Restrictions? No MIGRATION.0301 531487 Information not available 07/03/2022 Sex: Female Functional Status Question Answer Note LastModified by Organizat ion Details LastModified Time Do you use any illicit or recreational drugs? No [email or web address] Information not available 01/12/2024 Do you or have you ever used any other forms of tobacco or nicotine? No [email or web address] Information not available 01/12/2024 What is your level of alcohol consumption? None MIGRATION.9658707 026 Information not available 07/03/2022 Are you currently employed? No [email or web address] Information not available 01/12/2024 Do you have transportation difficulties? No MIGRATION.1910398 026 Information not available 07/03/2022 Are you able to walk? YESWOREST MIGRATION.7008537 026 Information not available 07/03/2022 Do you have difficulty doing errands alone? No MIGRATION.5778953 026 Information not available 07/03/2022 Are you able to care for yourself? Yes MIGRATION.6529860 026 Information not available 07/03/2022 Do you have difficulty dressing or bathing? No MIGRATION.8979615 026 Information not available 07/03/2022 What is your exercise level? None [email or web address] Information not available 01/12/2024 Mental Status Question Answer Note LastModified by Organizat ion Details LastModified Time Do you feel stressed (tense, restless, nervous, or anxious, or unable to sleep at night)? [id number] MIGRATION.94615127 26 Information not available 07/03/2022 Do you have difficulty concentrating, remembering or making decisions? No MIGRATION.81973081 26 Information not available 07/03/2022 Family History Relationship Description Onset Age of this Age Resolved Age Notes LastModified by Organization Details LastModified Time Father Heart disease MIGRATION.868 [id number] Not available 07/03/2022 03:14:26 Father Hypertensive disorder MIGRATION.679 [id number] Not available 07/03/2022 03:14:26 Father Diabetes mellitus MIGRATION.843 1645104 Not available 07/03/2022 03:14:26 Mother Heart disease MIGRATION.089 1678499 Not available 07/03/2022 03:14:26 Mother Hypertensive disorder MIGRATION.931 [id number] Not available 07/03/2022 03:14:26 Mother Diabetes mellitus MIGRATION.771 5905606 Not available 07/03/2022 03:14:26 Brother Family history of malignant neoplasm MIGRATION.429 8570515 Not available 07/03/2022 03:14:26 Sister Family history of malignant neoplasm MIGRATION.263 [id number] Not available 07/03/2022 03:14:26 Medical History Condition Response BLINDNESS N KIDNEY STONES N MRSA N CARPAL TUNNEL SYNDROME N LUNG DISEASE/DISORDER N HISTORY OF DRUG ABUSE N RADIATION / CHEMOTHERAPY N COPD N SPORTS INJURY N ANKLE PAIN N BLOOD DISEASES N SCHIZOPHRENIA N SHINGLES N BOWEL PROBLEMS N SHOULDER PAIN N DEPRESSION (INCLUDING POST ) N STROKE/TIA N KNEE PAIN N ULCERS N BENIGN PROSTATIC HYPERPLASIA N OBESITY N GERD/NAUSEA N ANEURYSM N URINARY/BLADDER/KIDNEY PROBLEMS N CORONARY ARTERY DISEASE (CAD) N ADDICTION CONCERNS N USE OF BLOOD THINNERS N SKIN PROBLEMS N EMPHYSEMA N MUSCLE,JOINT OR BONE PROBLEMS N DVT N STOMACH ULCERS N BLOOD CLOTS N USE OF NSAIDS N CONCUSSION OR SPINAL TRAUMA N NEUROPATHY N AIDS/HIV N FRACTURES N ELBOW PAIN N HYPERTENSION N TOURETTE'S N ANXIETY DISORDER N Metal allergy N BLOOD TRANSFUSION N ANEMIA/BLOOD DISORDER N BIPOLAR DISORDER N BRONCHITIS N OSTEOARTHRITIS N TUBERCULOSIS N FOOT PROBLEM N HEART VALVE DISORDERS N ALLERGIES/HAYFEVER N SOFT TISSUE INJURY N INFECTIOUS DISEASE N HEART ARRHYTHMIA N INSOMNIA N RHEUMATOID ARTHRITIS N HIGH CHOLESTEROL / HYPERLIPIDEMIA N EDEMA N CHRONIC PAIN SYNDROME N CAROTID BLOCKAGE N BACK / NECK PROBLEMS N HAVE YOU BEEN HOSPITALIZED OR SEEN IN [facility] IN THE PAST YEAR ? N BURSITIS N HERNIATED DISC N DIALYSIS N FIBROMYALGIA N OSTEOPOROSIS N ARTHRITIS Y NO SIGNIFICANT PAST MEDICAL HISTORY N PERIPHERAL NEUROPATHY N DIABETES, TYPE N HEARTBURN / REFLUX N HEPATITIS / LIVER DISEASE N GOUT N SLEEP DISORDER N ALZHEIMER'S DISEASE N HERPES N SEIZURES/EPILEPSY N HEADACHES/MIGRAINES N VASCULAR DISEASE N HIP PAIN N Blood Disorder N DIZZINESS N HEAD TRAUMA OR INJURY N HEART DISEASE/HEART PROBLEMS N MULTIPLE SCLEROSIS N CARDIAC ARRHYTHMIA N CANCER: SPECIFY N ANESTHESIA COMPLICATIONS N ATRIAL FIBRILLATION N AUTOIMMUNE DISEASE N Gynecological HistoryNo gynecological history recorded. Obstetrics History GPAL:G 0 P 0 0 0 0 Immunizations Vaccine Type Date Status Note Provider Nam e and Address Organization Details Recorded Time Influenza, split virus, trivalent, preservative 5 completed Ganesh Montalvo MD [address] [place] [address], [id number], [facility] [employer] 06/08/2024 16:48:07 influenza, unspecified formulation 2 completed Not Available [facility] 07/03/2022 03:33:58 COVID-19, mRNA, LNP-S, PF, 100 mcg/0.5mL dose or 50 mcg/0.25mL dose 1 completed Not Available [facility] 07/03/2022 03:33:58 COVID-19, mRNA, LNP-S, PF, 100 mcg/0.5mL dose or 50 mcg/0.25mL dose 1 completed Not Available [facility] 07/03/2022 03:33:58 Influenza, split virus, quadrivalent, PF 2 completed Not Available [facility] 07/03/2022 03:33:59 Past Encounters Encounter ID Performer Location Encounter Start Date Encounter Closed Date Diagnosis/Indication Diagnosis SNOMED-CT Code Diagnosis ICD10 Code Diagnosis Note [id number] MELANIE Gilliland [facility] [address] [facility] [address] [place] [address] 07/14/2020 00:00:00 07/14/2020 14:22:14 [id number] Otto Kc MD [facility] [address] [place] [address] 10/20/2020 00:00:00 10/20/2020 14:16:56 [id number] Otto Kc MD [facility] [place] [address] [facility] [address] [place] [address] 02/02/2021 00:00:00 02/02/2021 14:14:15 [id number] Otto Kc MD [facility] [place] [address] [place] [address] 05/18/2021 00:00:00 05/18/2021 14:16:37 [id number] Otto Kc MD [facility] [place] [address] [place] [address] 08/24/2021 00:00:00 08/24/2021 14:12:19 [id number] Otto Kc MD [facility] [address] [place] [address] 08/29/2021 00:00:00 08/29/2021 14:12:56 [id number] Ganesh Montalvo MD [facility] [address] [place] [address] 11/20/2021 00:00:00 11/20/2021 14:56:20 [id number] Otto Kc MD [facility] [place] [address] [facility] [address] [place] [address] 11/21/2021 00:00:00 11/21/2021 14:58:38 [id number] Ganesh Montalvo MD [facility] [address] [place] [address] 02/20/2022 00:00:00 02/20/2022 14:42:47 [id number] Otto Kc MD [facility]_[address] [address] 03/07/2022 00:00:00 03/07/2022 12:35:35 [id number] Ganesh Montalvo MD [facility] Internal [address] [place] [address] 05/27/2022 00:00:00 05/27/2022 15:11:44 [id number] Otto Kc MD [facility]_[address] [address] 06/27/2022 00:00:00 06/27/2022 15:57:10 [id number] Ganesh Montalvo MD [facility] Internal [address] [address] 09/02/2022 10:00:40 09/02/2022 10:49:45 Vitamin D deficiency 07795739 E55.9 on meds Osteoarthritis 295883837 M17.11 meds help Essential hypertension 56130052 I10 UNDER CONTROL Hearing loss 67349104 H9 1.92 unchanged Overactive urinary bladder 183485447 N32.81 using pads Low back pain 878015505 M54.50 on celebrex , Adult heal th examination 000752314 Z00.00 Colonoscop y- Does not want- Has done cologaurd twice and has been NLMammogra m- 2020- NL- Ordered by Dr. Carrero a- Up to date- Dr. Lane odaleePnantoni ovax- Has had bothFLU- 2020- had a reaction to HIGH DOSECOVID- 11/03/20, 12/01/20 Hypothyroidism 80635005 E03.9 [id number] Ganesh Montalvo MD [facility] Internal Med [facility] [address] [facility] [place] [address] 01/08/2023 14:26:48 01/08/2023 15:05:23 Hypothyroidism 93225510 E03.9 under control Vitamin D deficiency 347 50333 E55.9 on meds Osteoarthritis 569290003 M17.11 meds help Essential hypertension 87772940 I10 no meds needed Hearing loss 46297070 H9 1.92 unchanged Overactive urinary bladder 768636964 N32.81 using pads , try Gemtesa samples Low back pain 548515376 M54.50 on celebrex , Adult heal th examination 581746182 Z00.00 Colonoscop y- Does not want- Has done cologaurd twice and has been NLMammogra - 2020- NL- Ordered by Dr. Carrero a- Up to date- Dr. Domingo Cameron ovax- Has had bothFLU- 2020- had a reaction to HIGH DOSECOVID- 11/03/20, 12/01/20 [id number] Otto Kc MD [facility] Ortho [address] [address] 02/20/2023 14:54:58 02/20/2023 16:04:53 Osteoarthritis of left hip joint [id number] 78902 M16.12 [id number] Ganesh Montalvo MD [facility] Internal Med [facility] [address] [facility] [place] [address] 05/08/2023 14:24:21 05/08/2023 15:08:54 Hypothyroidism 71635413 E03.9 under control Vitamin D deficiency 347 38961 E55.9 on meds Osteoarthritis 541089681 M17.11 meds help Essential hypertension 32313433 I10 no meds needed Hearing loss 53238802 H9 1.92 unchanged Overactive urinary bladder 779807358 N32.81 using pads , has tried Gemtesa samples, no help Low back pain 572116814 M54.50 on celebrex , Adult heal th examination 820248150 Z00.00 Colonoscop y- Does not want- Has done cologaurd twice and has been NLMammogra m- 2020- NL- Ordered by Dr. Alise dash- Up to date- Dr. Domingo hanson- Has had bothFLU- 2020- had a reaction to HIGH DOSE, OVID- 11/03/20, 12/01/20 [id number] Ganesh Montalvo MD [facility] Internal Med [address] [facility] [place] [address] 09/08/2023 14:05:22 09/08/2023 14:32:49 Hypothyroidism 17811735 E03.9 under control Vitamin D deficiency 347 26349 E55.9 on meds Osteoarthritis 546570813 M17.11 meds help Essential hypertension 69062412 I10 no meds needed Hearing loss 10828886 H9 1.92 unchanged Overactive urinary bladder 984430691 N32.81 using pads , try meds Low back pain 234048665 M54.50 on celebrex , Adult heal th examination 535223306 Z00.00 Colonoscop y- Does not want- Has done cologaurd twice and has been NLMammogra m- 2020- NL- Ordered by Dr. Alise dash- Up to date- Dr. Domingo hanson- Has had bothFLU- 2020- had a reaction to HIGH DOSE, OVID- 11/03/20, 12/01/20 [id number] Ganesh Montalvo MD [facility] Internal Med [address] [facility] [place] [address] 01/12/2024 14:01:27 01/12/2024 14:49:17 Hypothyroidism 31192976 E03.9 under control Vitamin D deficiency 347 33301 E55.9 on meds Osteoarthritis 168504457 M17.11 meds help Essential hypertension 30520621 I10 no meds needed Hearing loss 54041790 H9 1.92 unchanged Overactive urinary bladder 015186314 N32.81 using pads , Low back pain 732751275 M54.50 on celebrex , Adult heal th examination 596170696 Z00.00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
--- OUTSIDE RECORDS SUMMARY | 2024-11-16 18:01 | XMS_ITS | Continuity of Care Document ---
Author Organization [facility] Address [address] [place] [address] Phone Care Team Providers Care Customer Experience Retail Clerk Name Role Phone [facility] Unavailable Unavail able Nico Malhotra Unavailable Unavailable Procedures Procedure Date Progressive Lens, Plastic Tint Photochromatic, Plastic [employer] [facility] Eye Exam & Treatment Dilated Macular Exam Performed 10 Counseling For Antioxidant Supplements J Refraction Eye Exam & Treatment Dilated Macular Exam Performed 09 Counseling For Antioxidant Supplements Script Printed/Phoned Pt Requ Or Pharm N ot Availab Refraction Progressive Lens, Plastic Tint Photochromatic, Plastic [employer] [facility] Eye Exam & Treatment Refraction AREDS Formula Prescribed/Recommended May Dilated Macular Exam Performed 08 Eye Exam & Treatment Refraction Advance Directives Directive Yes / No Effective Date File Name No Information Encounters Encounter Description Practice Location Reason(s) For Visit Diagnoses Date Provider Providers Copied on Encounter [facility], [address], [place], [place], [address], [place] tel:[phone] [facility] No Information 0 [facility] . [address], [address], [place], [place], [address], [place]. tel:[phone] Referring Provider: Amrit Garay, [facility] [address], [place], [address]. tel:[phone] rbad Provider: Nico Malhotra, [facility] [address], [place], [address]. tel:[phone] [facility], [address], [place], [place], [address], [place] tel:[phone] [facility] No Information 0 Levon Marcus. [facility] [address], [address], [place], [address], [place]. tel:[phone] [facility], [address] [place] [address] [address], [place], [place], [address], [place] tel:[phone] [facility] No Information 9 Levon Marcus. [address] [place], [place] [address], [place], [address], [place]. tel:[phone] [facility], [address] [place] [address] [address], [place], [place], [address], [place] tel:[phone] [facility] No Information 8 [facility] . [address], [address], [place], [place], [address], [place]. tel:[phone] Referring Provider: Damir tinoco, [facility] [address], [place], [address]. tel:[phone] salinas Provider: Nico Malhotra, [address], [place], [address]. tel:[phone] [facility], [address], [place], [place], [address], [place] tel:[phone] [facility] No Information 1 8 Levon Marcus. [facility] [address] , [address], [place], [address], [place]. tel:[phone] [facility], [address], [place], [place], [address], [place] tel:[phone] [facility] No Information [address] Levon Marcus. [address], [place], [address], [place]. tel:[phone] Family History Family Member Type Diagnosis Age At Onset No Information Payers Payer name Insurance type Covered alliance party ID Authoriza tion(s) No Information Social History Type Description Quantity Date Captured Comments Sex Female Smoking Status No Information Chief Complaint And Reason For Visit No Information Reason For Referral Reason For Referral No Information History Of Present Illness Encounter Date Complaint History Of Prese nt Illness No Information Functional Status Date Functional Assessmen t No Information Instructions Date Instruction Additional Infor mation No Information Assessments Type Assessment Date No Information Patient Care Teams Name Effective Dates (start - stop) Status Members No Information
[2024-11-16 18:38] VITALS: BP 168/94; PULSE 90; RESP 16; O2SAT 97
== END 2024-11-16 19:25 | disposition short-term general hospital (02) ==
PROVIDERS: Emergency Provider Physician Assistant; PCP Internal Medicine
DX: S12.690A Other displaced fracture of seventh cervical vertebra, initial encounter for closed fracture (principal); S22.21XA Fracture of manubrium, initial encounter for closed fracture; M47.812 Spondylosis without myelopathy or radiculopathy, cervical region; K80.20 Calculus of gallbladder without cholecystitis without obstruction; I49.1 Atrial premature depolarization; V49.40XA Driver injured in collision with unspecified motor vehicles in traffic accident, initial encounter
CPT/HCPCS: 70450; 71260; 72125; 73562; 74177; 93005; 99285; A9270; Q9967